=== PATIENT | male | born 1945 | race Caucasian/White ===

== ENCOUNTER 2024-03-01 13:13 | Outpatient (CLI) | payer MEDICARE, SELFPAY ==
--- NOTE | ~2024-03-01 | PE_ITS ---
EXAMINATION: PET skull to mid thigh DATE: 03/01/2024 15:25 INDICATION: Malignant neoplasm of bones/spine. TECHNIQUE: Blood glucose level was 143 mg/dL. 10.259 mCi of 18-fluorodeoxyglucose (18-FDG) was admini stered i.v. Low dose computed tomography (CT) images were acquired from the base of the brain to the proximal thighs for attenuation correction and anatomic localization. Automated exposure control was employed. Dose-length product (DLP) was 880 mGy-cm. Positron emission tomography (PET) images were ac quired in the same distribution. COMPARISON: None FINDINGS: Head/neck: There are no pathologically enlarged lymph nodes. There are lytic lesions of bone with inc reased activity. Chest: There is mild emphysema. There is a 4.7 x 2.7 cm mass in right lung lower lobe with maximum LEAVITT V of 9.7. There is right hilar lymphadenopathy with increased activity with obstruction of bronchi. T here is mucous plugging in the basilar segments of right lower lobe. There is a 3.2 x 1.2 cm mass in left lower lobe with increased activity. There is a 1.9 x 1.1 cm nodule in left lower lobe with incre ased activity. No pleural effusion. The heart size is normal. There are coronary artery calcification s. No pericardial effusion. There are lytic lesions of bone with increased activity. There is a patho logic fracture of left sixth rib. Abdomen/pelvis/proximal thighs: There are a few small masses in the liver with increased activity. Th e spleen is normal. There are gallstones in the gallbladder, which is normal in size. The pancreas is normal. There are masses in the adrenal glands measuring up to 2.7 cm on the right with increased ac tivity. The kidneys are normal. The prostate is moderately enlarged. There are no dilated loops of sybil wel. There is no ascites. There is mild left para-aortic lymphadenopathy. There are 2 small body wall masses with increased activity. There are lytic lesions of bone with increased activity, worst in le ft ilium and left sacrum. IMPRESSION: 1. 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 2. Pulmonary nodules, chest and retroperitoneal lymphadenopathy, liver masses, adrenal masses, bone l esions, and body wall masses with increased activity, consistent with metastatic disease. Reviewed, dictated and finalized at location A. IMPRESSION: 1. 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 2. Pulmonary nodules, chest and retroperitoneal lymphadenopathy, liver masses, adrenal masses, bone lesions, and body wall masses with increased activity, con sistent with metastatic disease.
[2024-03-01 14:02] LABS: Glucose Point of Care 143 mg/dl (65-105)
== END 2024-03-01 13:14 | disposition home or self-care (01) ==
PROVIDERS: PCP Internal Medicine; Visit Provider Internal Medicine
DX: C41.1 Malignant neoplasm of mandible (principal); R91.1 Solitary pulmonary nodule; R91.8 Other nonspecific abnormal finding of lung field
CPT/HCPCS: 78815; A9552